=== PATIENT | female | born 1935 | race African-American/Black ===

== ENCOUNTER 2016-08-09 09:32 | Outpatient (CLI) | payer MEDICARE ==
--- NOTE | 2016-08-09 13:39 | Mammography Report ---
BONE DENSITY STUDY: DEFINITIONS: BMD = Bone Mineral Density T-score = BMD related to mean peak bone mass of young adult (mean expressed in Standard Deviation) Z-score = Age matched BMD expressed in SD World Health Organization (WHO) Diagnostic Criteria Normal T-score > -1 SD Osteopenia T-score between -1 and -2.4 SD Osteoporosis T-score -2.5 SD or below FINDINGS: The weighted average BMD of lumbar spine L1-L4 is 0.723 with a T-score of -2.9. Compared to the previous study performed on February 13, 2011, this represents an interval change of -1.2%. The weighted average BMD of hip is 0.710 with a T-score of -1.9. This represents an interval change of -6.2%. IMPRESSION: The patient's T-score is diagnostic for osteoporosis and high relative risk for fracture. NOTE: BMD is not the only risk factor for fracture; also consider factors such as the patient's age, risk of falling, previous osteoporotic fracture, family history of osteoporotic fractures, current smoker, and low body weight. Desir's triangle is a region of interest in femur, predominantly of trabecular bone. It is not a true anatomic site, and [facility] does not recommend its use clinically.
== END 2016-08-09 09:33 | disposition home or self-care (01) ==
LOC: MAMMO 09:32
PROVIDERS: ATTEND Family Medicine
DX: M81.0 Age-related osteoporosis without current pathological fracture (principal); Z78.0 Asymptomatic menopausal state
CPT/HCPCS: 77080

== ENCOUNTER 2018-02-03 08:35 | Outpatient (CLI) | payer MEDICARE ==
--- NOTE | 2018-02-03 11:22 | XRay Report ---
BILATERAL SHOULDER, 3 VIEWS History: Pain in shoulder. Findings: Borderline bone mineralization. No evidence for fracture, dislocation or ligamentous injury. Minimal osteoarthritic changes are identified bilaterally. The soft tissues are unremarkable. Impression: Minimal osteoarthritis.
== END 2018-02-03 08:36 | disposition home or self-care (01) ==
LOC: XRAY 08:35
PROVIDERS: ATTEND Family Medicine
DX: M19.012 Primary osteoarthritis, left shoulder (principal); M19.011 Primary osteoarthritis, right shoulder; Z88.6 Allergy status to analgesic agent

== ENCOUNTER 2018-03-31 11:07 | Outpatient (CLI) | payer MEDICARE ==
--- NOTE | 2018-03-31 13:24 | Mammography Report ---
BONE DENSITY STUDY: Postmenopausal osteoporosis. DEFINITIONS: BMD = Bone Mineral Density T-score = BMD related to mean peak bone mass of young adult (mean expressed in Standard Deviation) Z-score = Age matched BMD expressed in SD World Health Organization (WHO) Diagnostic Criteria Normal T-score > -1 SD Osteopenia T-score between -1 and -2.4 SD Osteoporosis T-score -2.5 SD or below FINDINGS: The weighted average BMD of lumbar spine L1-L4 is 0.707 with a T-score of -3.1. The weighted average BMD of the left hip is 0.713 with a T-score of -1.9. The femoral neck BMD is 0.546 with a T. value score of -2.7. When compared to her prior examination in August 2016 there has been no change in the hip mineralization however there has been a generalized mild decreased mineralization in the lumbar spine. IMPRESSION: The patient's average T-score is diagnostic for osteoporosis and high relative risk for fracture. NOTE: BMD is not the only risk factor for fracture; also consider factors such as the patient's age, risk of falling, previous osteoporotic fracture, family history of osteoporotic fractures, current smoker, and low body weight. Desir's triangle is a region of interest in femur, predominantly of trabecular bone. It is not a true anatomic site, and [facility] does not recommend its use clinically.
== END 2018-03-31 11:08 | disposition home or self-care (01) ==
LOC: MAMMO 11:07
PROVIDERS: ATTEND Family Medicine
DX: Z13.820 Encounter for screening for osteoporosis (principal); M81.0 Age-related osteoporosis without current pathological fracture; F17.210 Nicotine dependence, cigarettes, uncomplicated; Z78.0 Asymptomatic menopausal state
CPT/HCPCS: 77080